=== PATIENT | male | born 1980 | race American Indian/Alaskan Native ===

== ENCOUNTER 2016-11-28 08:11 | Inpatient (IN) | payer OTHER ==
--- NOTE | 2016-11-28 08:55 | XRay Report ---
ROUTINE CHEST, TWO VIEWS: SOB/chest pain PA and lateral views demonstrate the heart and mediastinal contour to be of normal size and shape. The lungs are clear and fully expanded and the soft tissues and bony structures are normal. IMPRESSION: Normal study.
[2016-11-28 09:06] LABS: Basophils % (Auto) 0.9 % (0.0-1.8); Eosinophils % (Auto) 1.8 % (0.0-4.3); Hematocrit 42.6 % (35.5-45.6); Hemoglobin 13.7 gm/dl (11.8-15.2); Mean Corpuscular HGB Conc 32 % (32-34); Mean Corpuscular Hemoglobin 26 pg (28-32); Mean Corpuscular Volume 81 fl (84-94); Platelet Count 292 K/mm3 (140-440); Red Blood Count 5.25 M/mm3 (3.65-5.03); Red Cell Distribution Width 14.6 % (13.2-15.2); White Blood Count 7.7 K/mm3 (4.5-11.0)
[2016-11-28 10:29] LABS: Anion Gap 16 mmol/L; BUN/Creatinine Ratio 14.16; Blood Urea Nitrogen 17 mg/dL (9-20); Calcium 9.4 mg/dL (8.4-10.2); Carbon Dioxide 29 mmol/L (22-30); Chloride 100.3 mmol/L (98-107); Glucose 112 mg/dL (75-100); Potassium 4.2 mmol/L (3.6-5.0); Sodium 141 mmol/L (137-145)
--- NOTE | 2016-11-28 18:52 | Emergency Department Report ---
ED Chest Pain HPI - General Chief Complaint: Chest Pain Stated Complaint: SOB Source: patient Mode of arrival: Ambulatory Limitations: No Limitations - History of Present Illness Initial Comments: 36-year-old male with a past medical history hypertension, obesity, tobacco use , and diabetes presents to the hospital with complaints of intermittent chest pain or shortness of breath 1.5 weeks. Patient was sent to the ER by Dr. Rodriguez to be evaluated for CAD. He has had intermittent substernal aching pain without aggravating or alleviating factors. Patient intermittent dyspnea on exertion and while talking. Intermittent nonproductive cough also reported. No reports of fever, calf tenderness, recent travel, history of PE/ DVT, or previous stress test. Patient is unconscious sure about his family history. He smokes 4-5 cigarettes on a weekend. - Related Data Previous Rx's Medication Instructions Recorded Last Taken Type Hydrochlorothiazide [Hctz] 25 mg PO QDAY #30 tablet 01/03/15 Unknown Rx Lisinopril [Zestril TAB] 20 mg PO QDAY #30 tablet 01/03/15 Unknown Rx Allergies Allergy/AdvReac Type Severity Reaction Status Date / Time No Known Allergies Allergy Verified 07/19/13 11:50 ELIEZER score - Eliezer Score Age > 65: (0) No Aspirin use within the Past 7 Days: (0) No 3 or more CAD Risk Factors: (1) Yes 2 or more Angina events in past 24 hrs: (1) Yes Known CAD with more than 50% Stenosis: (0) No Elevated Cardiac Markers: (0) No ST Deviation Greater than 0.5mm: (0) No ELIEZER Score: 2 ED Review of Systems ROS: Stated complaint: SOB Other details as noted in HPI Comment: All other systems reviewed and negative Other: Constitutional: No fevers chills or weight loss Eyes: No eye pain visual changes or discharge ENT: No ear pain or throat pain Neck: Denies pain Respiratory: Denies cough wheezing Cardiovascular: Denies palpitations, syncope GI: Denies abdominal pain, nausea, vomiting, diarrhea : Denies dysuria Musculoskeletal: Denies back pain, joint swelling Skin: Denies rash, lesions, erythema Neurologic: Denies headache, numbness, weakness Psychiatric: Denies suicidal ideation, hallucinations ED Past Medical Hx - Past Medical History Previous Medical History?: Yes Hx Hypertension: Yes Hx CVA: No Hx Heart Attack/AMI: No Hx Congestive Heart Failure: No Hx Diabetes: Yes Hx Deep Vein Thrombosis: No Hx Pulmonary Embolism: No Hx GERD: No Hx Liver Disease: No Hx Renal Disease: No Hx Sickle Cell Disease: No Hx Arthritis: No Hx Headaches / Migraines: Yes Hx Seizures: No Hx Kidney Stones: No Hx Psychiatric Treatment: No Hx Asthma: No Hx COPD: No Hx Tuberculosis: No Hx Dementia: No Hx HIV: No - Surgical History Past Surgical History?: Yes Additional Surgical History: abd surgery as a child - Social History Smoking Status: Current Every Day Smoker Substance Use Type: Alcohol - Medications Home Medications: Home Medications Medication Instructions Recorded Confirmed Last Taken Type Hydrochlorothiazide [Hctz] 25 mg PO QDAY #30 tablet 01/03/15 11/28/16 Unknown Rx Lisinopril [Zestril TAB] 20 mg PO QDAY #30 tablet 01/03/15 11/28/16 Unknown Rx ED Physical Exam - General Limitations: No Limitations - Other Other exam information: General: No limitations, patient is alert in no acute distress Head exam: Atraumatic, normocephalic Eyes exam: Normal appearance ENT: Moist mucous membrane, normal oropharynx Neck exam: Normal inspection, full range of motion, no meningismus nontender Respiratory exam: Clear to auscultation bilateral, no wheezes, rales, crackles Cardiovascular: Normal rate and rhythm, normal heart sounds, chest wall nontender Abdomen: Soft, nondistended, and nontender, with normal bowel sounds, no rebound, or guarding Extremity: Full range of motion normal inspection no deformity, no calf tenderness or edema Back: Normal Inspection, full range of motion, no tenderness Neurologic: Alert, oriented x3, cranial nerves intact, no motor or sensory deficit Psychiatric: normal affect, normal mood Skin: Warm, dry, intact ED Course Vital Signs 11/28/16 08:25 Temperature 98.4 F Pulse Rate 68 Respiratory 18 Rate Blood Pressure 147/103 O2 Sat by Pulse 97 Oximetry - Reevaluation(s) Reevaluation #1: 11/28/16 18:52 Patient stable to not require additional pain medication Reevaluation #2: 11/28/16 18:55 ct angio ordered to r/o PE given mild D-dimer elevated. Pt requires admissin regardless and therefore was discussed with Dr Lackey/Hosptialst. ED Medical Decision Making - Lab Data Result diagrams: 11/28/16 08:51 11/28/16 08:51 Lab Results 11/28/16 11/28/16 11/28/16 Range/Units 08:51 08:51 11:32 WBC 7.7 (4.5-11.0) K/mm3 RBC 5.25 H (3.65-5.03) M/mm3 Hgb 13.7 (11.8-15.2) gm/dl Hct 42.6 (35.5-45.6) % MCV 81 L (84-94) fl MCH 26 L (28-32) pg MCHC 32 (32-34) % RDW 14.6 (13.2-15.2) % Plt Count 292 (140-440) K/mm3 Lymph % (Auto) 24.6 (13.4-35.0) % Rush % (Auto) 10.0 H (0.0-7.3) % Eos % (Auto) 1.8 (0.0-4.3) % Baso % (Auto) 0.9 (0.0-1.8) % Lymph # 1.9 (1.2-5.4) K/mm3 Rush # 0.8 (0.0-0.8) K/mm3 Eos # 0.1 (0.0-0.4) K/mm3 Baso # 0.1 (0.0-0.1) K/mm3 Seg Neutrophils % 62.7 (40.0-70.0) % Seg Neutrophils # 4.8 (1.8-7.7) K/mm3 D-Dimer (0-234) ng/mlDDU Sodium 141 (137-145) mmol/L Potassium 4.2 (3.6-5.0) mmol/L Chloride 100.3 (98-107) mmol/L Carbon Dioxide 29 (22-30) mmol/L Anion Gap 16 mmol/L BUN 17 (9-20) mg/dL Creatinine 1.2 (0.8-1.5) mg/dL Estimated GFR > 60 ml/min BUN/Creatinine Ratio 14.16 % Glucose 112 H (75-100) mg/dL Calcium 9.4 (8.4-10.2) mg/dL Troponin T < 0.010 < 0.010 (0.00-0.029) ng/mL 11/28/16 11/28/16 Range/Units 14:32 18:10 WBC (4.5-11.0) K/mm3 RBC (3.65-5.03) M/mm3 Hgb (11.8-15.2) gm/dl Hct (35.5-45.6) % MCV (84-94) fl MCH (28-32) pg MCHC (32-34) % RDW (13.2-15.2) % Plt Count (140-440) K/mm3 Lymph % (Auto) (13.4-35.0) % Rush % (Auto) (0.0-7.3) % Eos % (Auto) (0.0-4.3) % Baso % (Auto) (0.0-1.8) % Lymph # (1.2-5.4) K/mm3 Rush # (0.0-0.8) K/mm3 Eos # (0.0-0.4) K/mm3 Baso # (0.0-0.1) K/mm3 Seg Neutrophils % (40.0-70.0) % Seg Neutrophils # (1.8-7.7) K/mm3 D-Dimer 287.03 H (0-234) ng/mlDDU Sodium (137-145) mmol/L Potassium (3.6-5.0) mmol/L Chloride (98-107) mmol/L Carbon Dioxide (22-30) mmol/L Anion Gap mmol/L BUN (9-20) mg/dL Creatinine (0.8-1.5) mg/dL Estimated GFR ml/min BUN/Creatinine Ratio % Glucose (75-100) mg/dL Calcium (8.4-10.2) mg/dL Troponin T < 0.010 (0.00-0.029) ng/mL - EKG Data -: EKG Interpreted by Me (nsr 59, no stemi) - EKG Data When compared to previous EKG there are: previous EKG unavailable - Radiology Data Radiology results: report reviewed (cxr: normal) - Medical Decision Making Pt given several cardiac risk factors for no history of stress test. Plans admit patient to hospital for stress test. CT angiogram pending at disposition and hospitalist to follow aspirin given in the ED - Differential Diagnosis pe, mi, unstable angina, atypical cp Critical Care Time: No Critical care attestation.: If time is entered above; I have spent that time in minutes in the direct care of this critically ill patient, excluding procedure time. ED Disposition Clinical Impression: Chest pain, Hypertension, Dyspnea, Diabetes, Elevated d-dimer Disposition: OP ADMITTED IP TO THIS HOSP Is pt being admited?: Yes Condition: Stable Time of Disposition: 19:37 (Dr Lackey/hosp)
[2016-11-28] MEDS ORDERED: NACL ONE (18:55)
[2016-11-28] MEDS ORDERED: ASPIRIN PO ONE (19:00)
--- NOTE | 2016-11-28 19:47 | Admit Criteria Form ---
Admission Criteria Documentation: CARDIOLOGY GRG Clinical Indications for Admission to Inpatient Care ( Place 'X' for any and all applicable criteria): Hospital admission is needed for appropriate care of the patient because of ANY ONE of the following (1): [ ] I. Hemodynamic instability as indicated by ALL of the following (1)(2)(3) (4)(5) [ ]a) Vital signs or other findings not as expected for chronic patient condition or baseline [ ]b) Instability indicated by ANY ONE of the following: [ ]i) Hypotension [ ]ii) Symptomatic Tachycardia unresponsive to treatment ( e.g., analgesia, fluids, sedation as indicated) [ ]iii) Inadequate perfusion indicated by ANY ONE of the following: [ ] 1) Lactic acidosis (> 2 mmol/L) [ ] 2) New abnormal capillary refill (> 3 seconds) [ ] 3) Reduced urine output [ ] 4) New altered mental status [ ]iv) Orthostatic vital sign changes unresponsive to treatment (e.g., fluids) [ ]v) IV inotropic or vasopressor medication required to maintain adequate blood pressure or perfusion [ ] II. Severe heart failure as indicated by ANY ONE of the following(17)(18) [ ]a) Respiratory distress [ ]b) Hypotension [ ]c) Anasarca (refractory to outpatient therapy) [ ]d) Cardiac arrhythmias of immediate concern [ ]e) Myocardial ischemia [ ] III. Cardiac arrhythmias or findings of immediate concern indicated by ANY ONE of the following (19)(20): [ ] a) Heart rhythms that are inherently dangerous or unstable indicated by ANY ONE of the following (21)(22)(23): [ ] i) Resuscitated ventricular fibrillation or cardiac arrest [ ] ii) Ventricular escape rhythm [ ] iii) Sustained ventricular tachycardia (30 seconds or more of ventricular rhythm at greater than 100 beats per minute) [ ] iv) Nonsustained ventricular tachycardia and ANY ONE of the following: [ ] 1) Suspected cardiac ischemia as cause or consequence of ventricular tachycardia [ ] 2) In setting of acute myocarditis [ ] b) Unstable cardiac conduction defects indicated by ANY ONE of the following(23)(24)(25) [ ] i) Type II second-degree atrioventricular block [ ]ii) Third-degree atrioventricular block [ ]iii) New-onset left bundle branch block with suspected myocardial ischemia [ ]c) Any heart rhythm and ANY ONE of the following (21)(22)(26)(27) (28) [ ] i) Continuous long-term ECG monitoring needed (e.g., initiation of drug requiring monitoring for more than 24 hours) [ ] ii) Patient has automatic implanted cardioverter defibrillator that is repeatedly firing, malfunctioning, or in need of immediate adjustment of settings beyond the scope of ambulatory or observation care [ ]d) Heart rhythms of concern due to ANY ONE of the following: [ ] i) Hypotension [ ] ii) Respiratory distress [ ] iii) Association with other significant symptoms (e.g., bradycardia with syncope or ongoing dizziness, supraventricular tachycardia with chest pain (14)(15)(17) [ ] IV. Monitoring for cardiac contusion beyond the scope of observation care needed [A](30)(31)(32) [ ] V. Surgical or device complication (e.g., valve replacement complication , pacemaker dysfunction) (35)(41)(44)(45)(46) [ ] . Inpatient palliative care needed. [B](49) Also use Inpatient Palliative Care Criteria [ ] VII. Nonbacterial thrombotic (marantic) endocarditis (36)(43)(47)(48) [X ] VIII. Cardiology condition, symptom, or finding for which emergency and observation care has failed or are not considered appropriate. [ ] IX. Acute valvular disease requiring inpatient as indicated by ANY ONE of the following (41) [ ]a) Acute valvular regurgitation (42) [ ]b) Noninfectious valvulitis (43) [ ]c) Obstructive valve thrombosis [ ]d) Paravalvular leak [ ]e) Other significant valvular disorder remaining after emergency or observation level of care (as appropriate) [ ]X. Pericardial disease requiring inpatient treatment as indicated by ANY ONE of the following (33)(34)(35)(36)(37) [ ]a) Suspected tamponade (38)(39)(40) [ ]b) Hemopericardium [ ]c) Other significant pericardial disorder remaining after emergency or observation level of care (as appropriate) [ ] XI. Cardiac ischemia beyond scope of emergency and observation care. [ ] XII. Hypertension requiring inpatient treatment as indicated by ANY ONE of the following (6)(7)(8) [ ]a) SBP greater than 220 mm Hg or DBP greater than 120 mmHg despite treatment [ ]b) SBP greater than 140 mm Hg or DBP greater than 100 mm Hg with evidence of acute end organ damage as indicated by ANY ONE of the following [ ] i) Altered mental status [ ] ii) Acute renal failure as indicated by new onset of ANY ONE of the following (9)(10)(11)(12)(13) [ ]1) 3-fold rise in serum creatinine from baseline [ ]2) Serum creatinine greater than 4 mg/dL ( 354 micromoles/L) with acute rise greater than 0.5 mg/dL (44.2 micromoles/L) [ ]3) Reduction of more than 75% in estimated glomerular filtration rate from baseline [ ]4) Estimated glomerular filtration rate less than 35 mL/min/1.73m2 (0.59 mL/sec/1.73m2) in child up to 18 years of age [ ]5) Cessation of urine output indicated by ALL of the following [ ]A. Adequate volume status [ ]B. Inadequate urine output as indicated by ANY ONE of the following [ ]a. Urine output less than 0.3 mL/kg/hr for 24 hours [ ]b. Anuria (urine output less than 0.1 mL/kg/hr) for 12 hours [ ] iii) Aortic dissection [ ] iv) Myocardial Ischemia [ ] v) Left ventricular heart failure [ ]vi) Retinal Hemorrhage [ ]vii) Other significant finding [ ]c) Hypertension in child requiring inpatient treatment as indicated by ALL of the following(14)(15)(16) [ ] i) Outpatient treatment not effective, not available, or not appropriate [ ]ii) SBP or DBP greater than 95th percentile for age [ ]iii) Evidence of acute end organ damage as indicated by ANY ONE of the following [ ]1) Altered mental status [ ]2) Acute renal failure as indicated by new onset of ANY ONE of the following(9)(10)(11)(12)(13) [ ]A. 3-fold rise in serum creatinine from baseline [ ]B. Serum creatinine greater than 4 mg/dL (354 micromoles/L) with acute rise greater than 0.5 mg/dL (44.2 micromoles/L) [ ]C. Reduction of more than 75% in estimated glomerular filtration rate from baseline [ ]D. Estimated glomerular filtration rate less than 35 mL/min/1.73m2 (0.59 mL/sec/1.73m2) in child up to 18 years of age [ ]E. Cessation of urine output indicated by ALL of the following [ ]a. Adequate volume status [ ]b. Inadequate urine output as indicated by ANY ONE of the following [ ]i) Urine output less than 0.3 mL/kg/hr for 24 hours [ ]ii) Anuria ( urine output less than 0.1 mL/kg/hr) for 12 hours [ ]3) Severe headache [ ]4) Visual disturbance [ ]5) Retinal hemorrhage [ ]6) Other significant finding [ ]XIII. Complications of transplanted heart indicated by ANY ONE of the following(61): [ ]a) Acute graft rejection requiring inpatient management (eg, intravenous immunosuppression)(62)(63) [ ]b) Acute graft heart failure indicated by ANY ONE of the following(64): [ ]i) Hemodynamic instability [ ]ii) Cardiac arrhythmias of immediate concern [ ]iii) Pulmonary edema that is very severe (eg, mechanical ventilation needed, imminent or likely, need for 100% oxygen to keep oxygen saturation above 90%) [ ]iv) Pulmonary edema that is persistent as indicated by ALL of the following: [ ]1) New need for oxygen therapy to keep oxygen saturation above 90% (or increased FiO2 need from baseline) [ ]2) Has not improved sufficiently with emergency department or observation care IV diuretics or other heart failure treatments[E] [ ]v) Altered mental status that is severe or persistent [ ]vi) Increased creatinine (new on laboratory test) with reduction of more than 50% in estimated glomerular filtration rate from baseline [ ]vii) Progressively (ongoing) rising creatinine (known from past laboratory test) with reduction of more than 25% in estimated glomerular filtration rate from baseline [ ]viii) Acute renal failure [ ]ix) Acute peripheral ischemia (eg, examination shows pulseless, cool, mottled, or cyanotic extremity) [ ]x) Pulmonary artery catheter monitoring needed [ ]xi) Other sign or symptom of heart failure requiring inpatient treatment (ie, too severe or not responsive to outpatient and observation care treatment) [ ]c) Infection requiring inpatient management (eg, Hemodynamic instability, need for intravenous antimicrobial treatment)(66)(67)(68)(69)(70) [ ]d) Cardiac allograft vasculopathy requiring inpatient management ( eg evidence of cardiac ischemia)(71) [ ]e) Other complication of transplanted heart (eg, stroke, severe pulmonary hypertension, severe valvular dysfunction) requiring inpatient management(72) The original [facility] [employer] content created by [employer] has been revised. The portions of the content which have been revised are identified through the use of italic text or in bold, and [facility] has neither reviewed nor approved the modified material. All other unmodified content is copyright [facility] [employer]. Please see references footnoted in the original [facility] [employer] edition 2016 Admission Criteria Met: Yes
--- NOTE | 2016-11-28 20:36 | Cat Scan Report ---
FINAL REPORT PROCEDURE: CT ANGIO CHEST TECHNIQUE: Computerized tomographic angiography of the chest was performed after the IV injection of iodinated nonionic contrast including image processing. The image data was postprocessed using 2-dimensional multiplanar reformatted (MPR) and 3-dimensional (MIP and/or volume rendered) techniques. HISTORY: elevated ddimer, chest pain, sob COMPARISON: No prior studies are available for comparison. FINDINGS: Heart and pericardium: Normal. Thoracic aorta: Normal. Pulmonary vasculature: Normal. Lymph nodes: No enlarged thoracic lymph nodes. Lungs: Normal. Pleural space: No effusion, thickening, or pneumothorax. Musculoskeletal structures: No significant abnormality. Upper abdominal structures: No significant abnormality small lymph node measuring 12 millimeters is identified along the superior margin of the pancreas. IMPRESSION: No evidence of pulmonary embolism. No acute pulmonary infiltrates. A 12 millimeter lymph node superior to the pancreas is considered to be mild degree lymphadenopathy per CT criteria
[2016-11-29] MEDS ORDERED: ZOFRAN IV PRN (00:46)
[2016-11-29] MEDS ORDERED: DULCOLAX PR PRN (00:46)
[2016-11-29] MEDS ORDERED: DILAUDID IV PRN (00:46)
[2016-11-29] MEDS ORDERED: AMBIEN PO PRN (00:46)
[2016-11-29] MEDS ORDERED: TYLENOL PO PRN (00:46)
[2016-11-29] MEDS ORDERED: MILK OF MAGNESIA PO PRN (00:46)
[2016-11-29] MEDS ORDERED: PERCOCET 5/325 PO PRN (00:46)
[2016-11-29] MEDS ORDERED: SODIUM CHLORIDE FLUSH SYRINGE 10 ML IV PRN (00:50)
--- NOTE | 2016-11-29 00:58 | Event Note ---
Date: 11/29/16 See H/p in reports Chest pain-r/o AL DDX ACS/GERD/Costochondritis HTN
[2016-11-29 01:45] LABS: Creatine Kinase MB 1.9 ng/mL (0.0-4.0)
[2016-11-29 01:46] LABS: Creatine Kinase 163 units/L (55-170)
[2016-11-29] MEDS: PEPCID IV SCH ×3 (02:21→21:31)
--- NOTE | 2016-11-29 02:32 | History and Physical Report ---
CHIEF COMPLAINT: Left-sided chest pain for the last 10 days. HISTORY OF PRESENT ILLNESS: A 36-year-old -[place] male with history of hypertension, obesity and nicotine dependence and borderline diabetes, comes to the hospital for intermittent chest pain of 10 days duration. The patient was sent by his PCP for evaluation for acute coronary syndrome. Intermittent substernal chest pain about 6 on a scale of 1 to 10. Also, intermittent dyspnea on exertion and orthopnea. Nonproductive cough. No fever, no chills. No calf tenderness. No recent tenderness. No recent travel. Smokes about 4 to 5 cigarettes a day. PAST MEDICAL HISTORY: Significant for hypertension. ELIEZER score is 2. PAST SURGICAL HISTORY: Abdominal surgery as a child but not sure what type of surgery it was. SOCIAL HISTORY: Smokes about half pack a day. Alcohol occasionally. FAMILY HISTORY: Significant for hypertension. REVIEW OF SYSTEMS: CONSTITUTIONAL: No weight loss, no weight gain, no fever, no chills. HEENT: No sore throat, no postnasal drip. CARDIOVASCULAR AND RESPIRATORY: No shortness of breath. Chest pain present, intermittent in nature. For the last 10 days for about 5 or 6/10. Dull to sharp. No diaphoresis. No palpitations. GASTROINTESTINAL: No nausea, no vomiting, no diarrhea. GENITOURINARY: No dysuria, no flank pain. MUSCULOSKELETAL: No joint pains. No muscle pains. CENTRAL NERVOUS SYSTEM: No syncope, no seizures. SKIN: No rashes. A 14-point review of systems was done otherwise negative. PHYSICAL EXAMINATION: VITAL SIGNS: Temperature is 98.4, pulse is 68, respirations are 18, blood pressure 147/103, sats are 97%. HEENT: Unremarkable. Pupils equal and reactive. NECK: Supple, no lymphadenopathy, no thyromegaly. LUNGS: Clear to auscultation and percussion. Good air entry. CARDIOVASCULAR: S1, S2 heard. No gallop, no murmur, no rub. Apical impulse in left fifth intercostal space and midclavicular line. ABDOMEN: Soft and benign. No hepatosplenomegaly. No guarding, no rigidity. Hernial orifices are normal. EXTREMITIES: Good pedal pulses. No pedal edema. CENTRAL NERVOUS SYSTEM: Alert and oriented x 4. NEUROLOGIC: Nonfocal exam. LABORATORY DATA: White count is 7700, H and H is 13.7 and 42.6, platelet count is 292,000. Sodium is 141, potassium is 4.2, chloride is 100.3, BUN and creatinine 17 and 1.2, glucose is 112, calcium is 9.4. Troponin is less than 0.010. D-dimer is 287.03. EKG shows normal sinus rhythm, nonspecific ST-T wave changes. Previous EKGs were normal. Heart rate of 59. No STEMI. CT angiogram shows no evidence of pulmonary embolism, no acute pulmonary infiltrates. A 12 mm lymph node superior to pancreas. ASSESSMENT AND PLAN: 1. Acute coronary syndrome versus rule out myocardial infarction protocol. Serial cardiac enzymes. Lexiscan in the morning. 2. Hypertension. Continue lisinopril. 3. Obesity. The patient counseled. 4. Nicotine dependence, Nicoderm patch ordered. 5. Deep venous thrombosis prophylaxis, Lovenox 40 mg subQ daily ordered. JOB# [id number] MERLE/DENVER PROCTOR
[2016-11-29 05:57] LABS: Creatine Kinase MB 1.8 ng/mL (0.0-4.0)
[2016-11-29 06:00] LABS: Creatine Kinase 151 units/L (55-170)
[2016-11-29] MEDS: HABITROL TD SCH (12:19)
[2016-11-29] MEDS: ZESTRIL PO SCH (12:20)
[2016-11-29] MEDS: HCTZ PO SCH (12:20)
--- NOTE | 2016-11-29 20:44 | Cat Scan Report ---
FINAL REPORT EXAM: CT ABDOMEN PELVIS W CON HISTORY: Epigastric pain. Enlarged LN seen on CT Chest superior to pancreas, concern for malignancy TECHNIQUE: Dynamic helical CT scan through the abdomen and pelvis during and again after intravenous injection of iodinated contrast. Images are reconstructed in the sagittal and coronal planes. Oral contrast was not given. PRIORS: None. FINDINGS: The lung bases are clear. There are 3 enlarged gastrohepatic lymph nodes with the largest measuring 1.6 x 1.2 x 0.7 Cm. There are several mildly enlarged retroperitoneal lymph nodes. For example, there are 2 para-aortic lymph nodes just below the left renal vein measuring 1.1 x 0.7 x 1.1 cm and 1.6 x 0.6 x 1.7 cm respectively. The posterior limb of the left adrenal gas gland is thickened and elongated measuring 1.8 cm transverse by 4.0 cm in craniocaudal dimension. The liver, gallbladder, pancreas, spleen and right adrenal gland appear normal. The kidneys appear normal. The pelvic organs appear grossly normal. There is a small hiatal hernia. Otherwise, the stomach appears grossly within normal limits. There are no abnormally dilated loops of bowel or acute inflammatory changes. A normal-appearing appendix is identified. The abdominal aorta has a normal diameter. There is chronic bilateral sacroiliitis. 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 The lower thoracic and lumbar vertebrae are normal in height and alignment. Subcutaneous soft tissues are unremarkable. IMPRESSION: 1. Gastrohepatic and mild retroperitoneal adenopathy is a nonspecific finding but may be secondary to malignancy, possibly lymphoma. 2. Thickened and elongated posterior limb of the left adrenal gland without masslike enlargement. Consider further evaluation with MRI to evaluate for adenomatous hyperplasia. 3. Because the presence of retroperitoneal adenopathy testicular ultrasound should also be considered.
[2016-11-29] MEDS ORDERED: LOVENOX SUB-Q SCH (22:00)
--- NOTE | 2016-11-30 02:03 | Treadmill Report ---
THALLIUM STRESS TEST Left ventricle appears mildly dilated. Perfusion study demonstrates homogeneous uptake of the tracer in all segments, no significant perfusion defects identified. Gated analysis demonstrates well preserved left ventricular systolic function. Ejection fraction of 52%. CONCLUSION: Evidence of mild left ventricular dilatation, normal perfusion scan. No ischemia demonstrated. Recommend clinical correlation and echocardiographic reassessment of left ventricular size and systolic function. [facility]# [id number] CA/NTS
[2016-11-30 05:20] LABS: Basophils % (Auto) 1.1 % (0.0-1.8); Eosinophils % (Auto) 2.2 % (0.0-4.3); Hematocrit 43.6 % (35.5-45.6); Hemoglobin 13.9 gm/dl (11.8-15.2); Mean Corpuscular HGB Conc 32 % (32-34); Mean Corpuscular Hemoglobin 26 pg (28-32); Mean Corpuscular Volume 82 fl (84-94); Platelet Count 296 K/mm3 (140-440); Red Blood Count 5.32 M/mm3 (3.65-5.03); Red Cell Distribution Width 14.8 % (13.2-15.2); White Blood Count 5.8 K/mm3 (4.5-11.0)
[2016-11-30 07:45] LABS: Alanine Aminotransferase 21 units/L (7-56); Albumin 4.2 g/dL (3.9-5); Albumin/Globulin Ratio 1.4 %; Alkaline Phosphatase 62 units/L (35-129); Anion Gap 19 mmol/L; Blood Urea Nitrogen 15 mg/dL (9-20); Calcium 9.4 mg/dL (8.4-10.2); Carbon Dioxide 29 mmol/L (22-30); Chloride 96.4 mmol/L (98-107); Glucose 109 mg/dL (75-100); Potassium 4.3 mmol/L (3.6-5.0); Sodium 140 mmol/L (137-145); Total Protein 7.3 g/dL (6.3-8.2)
--- NOTE | 2016-11-30 08:59 | Hem/Onc Consultation ---
History of Present Illness - Reason for Consult Consult date: 11/30/16 - History of Present Illness Full note dictated and we will be under reports Agree with testicular ultrasound and MRI of the adrenal gland. We will order beta hCG and alpha-fetoprotein and LDH sedimentation rate. He seems to be doing well and if he gets discharged I'll follow-up in my office. May need close monitoring of his abdominal area with repeat CT in a few months. Would also recommend GI evaluation which can be done as outpatient. Medications and Allergies Allergies Allergy/AdvReac Type Severity Reaction Status Date / Time No Known Allergies Allergy Verified 07/19/13 11:50 Home Medications Medication Instructions Recorded Confirmed Last Taken Type Hydrochlorothiazide [Hctz] 25 mg PO QDAY #30 tablet 01/03/15 11/28/16 Unknown Rx Lisinopril [Zestril TAB] 20 mg PO QDAY #30 tablet 01/03/15 11/28/16 Unknown Rx Active Meds: Active Medications Acetaminophen (Tylenol) 650 mg PO Q4H PRN PRN Reason: Pain MILD(1-3)/Fever >100.5/BECKWITH Aspirin (Baby Aspirin) 81 mg PO QDAY [facility] Bisacodyl (Dulcolax) 10 mg [place] QDAY PRN PRN Reason: Constipation unrelieved by MOM Enoxaparin Sodium (Lovenox) 40 mg SUB-Q QDAY@2200 [facility] Last Admin: 11/29/16 21:32 Dose: 40 mg Famotidine (Pepcid) 20 mg IV BID [facility] Last Admin: 11/29/16 21:31 Dose: 20 mg Hydrochlorothiazide (Hctz) 25 mg PO QDAY [facility] Last Admin: 11/29/16 12:20 Dose: 25 mg Hydromorphone HCl (Dilaudid) 0.5 mg IV Q3H PRN PRN Reason: Pain , Severe (7-10) Lisinopril (Zestril) 20 mg PO QDAY [facility] Last Admin: 11/29/16 12:20 Dose: 20 mg Magnesium Hydroxide (Milk Of Magnesia) 30 ml PO Q4H PRN PRN Reason: Constipation Nicotine (Habitrol) 14 mg TD QDAY [facility] Last Admin: 11/29/16 12:19 Dose: 14 mg Ondansetron HCl (Zofran) 4 mg IV Q8H PRN PRN Reason: N/V unrelieved by Reglan Oxycodone/Acetaminophen (Percocet 5/325) 1 tab PO Q6H PRN PRN Reason: Pain, Moderate (4-6) Sodium Chloride (Sodium Chloride Flush Syringe 10 Ml) 10 ml IV PRN PRN PRN Reason: LINE FLUSH Zolpidem Tartrate (Ambien) 5 mg PO QHS PRN PRN Reason: Insomnia Exam - Constitutional Vitals: Last Vital Signs Temp 98.3 F 11/30/16 04:00 Pulse 54 L 11/30/16 04:00 Resp 18 11/30/16 04:00 BP 128/89 11/30/16 04:00 Pulse Ox 99 11/30/16 04:00 Results - Labs lab Results: Laboratory Results - last 24 hr 11/29/16 11/29/16 11/30/16 12:40 17:05 04:51 WBC 5.8 RBC 5.32 H Hgb 13.9 Hct 43.6 MCV 82 L MCH 26 L MCHC 32 RDW 14.8 Plt Count 296 Lymph % (Auto) 30.2 [place] % (Auto) 9.2 H Eos % (Auto) 2.2 Baso % (Auto) 1.1 Lymph # 1.8 [place] # 0.5 Eos # 0.1 Baso # 0.1 Seg Neutrophils % 57.3 Seg Neutrophils # 3.3 Sodium Potassium Chloride Carbon Dioxide Anion Gap BUN Creatinine Estimated GFR BUN/Creatinine Ratio Glucose POC Glucose 170 H 71 Calcium Total Bilirubin AST ALT Alkaline Phosphatase Total Protein Albumin Albumin/Globulin Ratio 11/30/16 11/30/16 04:51 07:41 WBC RBC Hgb Hct MCV MCH MCHC RDW Plt Count Lymph % (Auto) [place] % (Auto) Eos % (Auto) Baso % (Auto) Lymph # [place] # Eos # Baso # Seg Neutrophils % Seg Neutrophils # Sodium 140 Potassium 4.3 Chloride 96.4 L Carbon Dioxide 29 Anion Gap 19 BUN 15 Creatinine 1.2 Estimated GFR > 60 BUN/Creatinine Ratio 12.50 Glucose 109 H POC Glucose 105 Calcium 9.4 Total Bilirubin 0.40 AST 15 ALT 21 Alkaline Phosphatase 62 Total Protein 7.3 Albumin 4.2 Albumin/Globulin Ratio 1.4
[2016-11-30] MEDS ORDERED: BABY ASPIRIN PO SCH (10:00)
[2016-11-30] MEDS: PEPCID IV SCH (10:52)
[2016-11-30] MEDS: ZESTRIL PO SCH (10:52)
[2016-11-30] MEDS: HCTZ PO SCH (10:52)
[2016-11-30] MEDS: HABITROL TD SCH (10:55)
--- NOTE | 2016-11-30 11:02 | Discharge Summary ---
Providers - Providers Date of Admission: 11/29/16 00:46 Attending physician: NADEEN BABB MD 11/29/16 Consult to Cardiac Rehabilitation [CONS] Routine Reason For Exam: Phase I 11/29/16 21:14 Consult to Physician [CONS] Routine Consulting Provider: DOLORES SEE Reason For Exam: retroperitoneal LAD, ?concern for malignancy Place consult to:: DOLORES SEE Notified:: VALENTINE FROM [facility] Phone number called:: [phone] Was contact made?: Yes If yes, spoke with:: VALENTINE Time called:: 06:28 Primary care physician: [employer]CH[employer]ICIAN Hospitalization Condition: Stable Hospital course: 36-year-old male with no significant past medical history who presented with chest pain 1 day. He went on to have an MPI that was negative, unfortunately on his CT scan of his chest which was done to evaluate for PE, there was no PE seen on imaging. However there where retroperitoneal lymphadenopathy noted, he went on to have a CT of the abdomen and pelvis which showed significant retroperitoneal lymphadenopathy and possibly will adrenal hyperplasia. He was ordered for an MRI of his adrenal glands and also testicular ultrasound, as lymphadenopathy was worrisome for malignancy. However he refused any further testing and see that he wanted to follow-up as an outpatient, he plans to keep appointments with Dr. See when his discharge. He was counseled about's tobacco cessation, he verbalized understanding was given nicotine patch next Discharge diagnoses 1. Chest pain due to costochondritis 2. Retroperitoneal lymphadenopathy 3. Nicotine abuse Disposition: DISCHARGED TO HOME OR SELFCARE Time spent for discharge: 35 minutes Core Measure Documentation - Palliative Care Palliative Care/ Comfort Measures: Not Applicable - Core Measures Any of the following diagnoses?: none Exam - Constitutional Vitals: Temp Pulse Resp BP Pulse Ox 98.3 F 54 L 18 128/89 99 11/30/16 04:00 11/30/16 04:00 11/30/16 04:00 11/30/16 04:00 11/30/16 04:00 General appearance: Present: no acute distress, well-nourished - EENT Eyes: Present: PERRL ENT: hearing intact, clear oral mucosa - Neck Neck: Present: supple, normal ROM - Respiratory Respiratory effort: normal Respiratory: bilateral: CTA - Cardiovascular Heart Sounds: Present: S1 & S2. Absent: rub, click - Extremities Extremities: pulses symmetrical, No edema Peripheral Pulses: within normal limits - Abdominal General gastrointestinal: Present: soft, non-tender, non-distended, normal bowel sounds Male genitourinary: Present: normal - Integumentary Integumentary: Present: clear, warm, dry - Musculoskeletal Musculoskeletal: gait normal, strength equal bilaterally - Psychiatric Psychiatric: appropriate mood/affect, intact judgment & insight - Neurologic Neurologic: CNII-XII intact, moves all extremities Plan Follow up with: PRIMARY CAREMD [Primary Care Provider] - 7 Days DOLORES SEE MD [Staff Physician] - 7 Days Forms: Work/School Release Form Prescriptions: Nicotine [Habitrol] 14 mg TD QDAY #30 patch
[2016-11-30 13:04] VITALS: BP 138/94
[2016-11-30] MEDS ORDERED: PEPCID PO SCH (22:00)
--- NOTE | 2016-12-01 00:43 | Consultation ---
REFERRING PHYSICIAN: Dr. Nelson. REASON FOR CONSULTATION: Retroperitoneal adenopathy. HISTORY OF PRESENT ILLNESS: The patient is a 36-year-old male with history of diabetes, hypertension, obesity, who had presented to the hospital with chest pain and shortness of breath for about a week and half. He was seen by his primary care physician who sent him to the Emergency Room for evaluation. The patient, during his hospital course, did undergo CT of the chest initially to rule out pulmonary embolus. On his CT chest, there was a 1.2 cm lymph node superior to the pancreas. That was followed by a CT of the abdomen and pelvis, which did show 3 enlarged gastrohepatic lymph nodes, largest being 1.6 x 1.2 x 0.7 cm. There were several mildly enlarged retroperitoneal lymph nodes. There were two lymph nodes just below the left renal vein. There was also a left adrenal gland enlargement. Testicular ultrasound and MRI of the adrenal gland was suggested. The patient has had weight loss, but it has been intentional, it is about a 20 pounds weight loss. He said he has been working and that has caused him to have weight loss. He denies any night sweats or fevers. He denies any abdominal pain. Denies any testicular enlargement. The patient states his chest pain has improved. PAST MEDICAL HISTORY: Positive for diabetes and hypertension. SOCIAL HISTORY: Does smoke cigarettes. Occasional alcohol abuse. PHYSICAL EXAMINATION: GENERAL: The patient is awake and oriented. HEENT: Unremarkable for any adenopathy in the cervical or axillary area. CHEST: Clear. CARDIOVASCULAR: Regular rate and rhythm. ABDOMEN: Soft, nontender. EXTREMITIES: No clubbing, cyanosis or edema. LABORATORY DATA: Shows patient's hemoglobin to be 13.9, white count 5.8, MCV is 82, platelets 296,000. The patient LFTs were within normal limits. Creatinine is 1.2. ASSESSMENT: Nonspecific retroperitoneal adenopathy in this patient with no previous history of malignancy. This could be reactive. RECOMMENDATION AND PLAN: At this time, agree with testicular ultrasound and MRI of the adrenal gland. If he is discharged I will followup in my office. I have also ordered alpha fetoprotein, beta hCG, LDH, sed rate. Would recommend GI evaluation too and that can also be done as outpatient. JOB# [id number] [facility]
== END 2016-11-30 12:30 | disposition home or self-care (01) | DRG 206 ==
LOC: ED 08:11 → 4A 11-29 00:46
PROVIDERS: ADMIT Internal Medicine; ATTEND Internal Medicine
DX: M94.0 Chondrocostal junction syndrome [Tietze] (principal); I24.9 Acute ischemic heart disease, unspecified; Z68.41 Body mass index [BMI] 40.0-44.9, adult; I10 Essential (primary) hypertension; E66.9 Obesity, unspecified; E11.9 Type 2 diabetes mellitus without complications; F10.10 Alcohol abuse, uncomplicated; F17.210 Nicotine dependence, cigarettes, uncomplicated; R59.0 Localized enlarged lymph nodes; R63.4 Abnormal weight loss; Z86.711 Personal history of pulmonary embolism; Z86.718 Personal history of other venous thrombosis and embolism; Z82.49 Family history of ischemic heart disease and other diseases of the circulatory system; Z71.6 Tobacco abuse counseling
CPT/HCPCS: 36415; 71020; 71275; 74177; 78452; 80048; 80053; 82106; 82550; 82553; 82962; 83036; 83615; 84484; 84703; 85025; 85379; 85652; 93005; 93010; 93017; 99406; A9502; J1650; J2405; Q9967